=== PATIENT | male | born 1960 | race African-American/Black ===

== ENCOUNTER 2017-10-13 05:32 | Day surgery (SDC) | payer OTHER ==
[~2017-10-13] VITALS: Ht 177.8 cm; Wt 98.9 kg
--- NOTE | ~2017-10-13 | EKG ---
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 : 1960 Requested By: Nnamdi Garner Order Number: [id number] MD: Ronny Lund Measurements Intervals [place] Rate: 64 P: 66 [place]: 158 QRS: 57 QRSD: 94 T: 74 QT: 402 QTc: 415 Interpretive Statements Sinus rhythm Probable left atrial enlargement Probable left ventricular hypertrophy Compared to ECG 04/04/2016 02:04:33 T-wave abnormality no longer present Possible ischemia no longer present Electronically Signed On 10-13-2017 15:42:27 PRODUCTION CONSULTANT by Ronny Lund [email or web address] <ELECTRONICALLY SIGNED> By: Ronny Lund MD 10/13/17 [id number] Ronny Lund MD /EPI
--- NOTE | ~2017-10-13 | O ---
[facility] [place] [address] OPERATIVE REPORT Name: PEPE HARRISON Room #: [facility].#: [id number] Admission: 10/13/17 Attend Phys: Nnamdi Garner MD Discharge: 10/13/17 Date of : 64 Report #: [id number] THIS REPORT FOR: //name// CC: Nnamdi Owens MD DATE OF SERVICE: 10/13/2017 PREOPERATIVE DIAGNOSIS: Left inguinal hernia. POSTOPERATIVE DIAGNOSIS: Left direct inguinal hernia. PROCEDURE PERFORMED: Laparoscopic repair of left inguinal hernia with mesh. ANESTHESIA: General anesthesia. SURGEON: Nnamdi Garner M.D. COMPLICATIONS: None. ESTIMATED BLOOD LOSS: 5 mL. DESCRIPTION OF PROCEDURE: With the patient under general anesthesia, a Chavez catheter was placed, IV antibiotic was administered. Timeout was performed. The abdomen was prepped and draped in sterile fashion. A 0.25% Marcaine was used as a skin anesthesia adjacent to the umbilicus. Transverse incision was made adjacent to the umbilicus about 2 cm in length. The anterior rectus sheath was identified. The anterior rectus sheath was incised transversely. The muscle was spread along the length of its fiber. The posterior sheath was then identified. The space between the muscle and the posterior sheath was then dissected free. This was performed with finger dissection. An Origin balloon trocar was then placed through the space. This area was then visualized. CO2 was administered through the Origin trocar. A 5 mm trocar was placed about 2 inches below the umbilicus. Dissection was then carried out freeing the properitoneal space through the loose areolar tissue. The properitoneal space was opened up. The pubic bone was isolated. Dissection was carried over to the right side. The patient had a direct defect with some fat stuck into the wall. The inferior epigastric vessel was identified. The cord structures were identified. Lateral to this, the internal ring was found. The peritoneal reflection was identified on the cord. No evidence of indirect hernia. The peritoneum was further swept off the cord bluntly. The right side was also examined. There was no direct defect on the right side. The fat that was protruding through was brought back into the properitoneal space. This was a segment of fat that was about 3 cm in size. The fascia defect for the direct defect was then visualized. The defect was about 2.5 cm in size. A large [address] [place] [id number] OPERATIVE REPORT Name: PEPE HARRISON Room #: [facility]P [facility]#: [id number] Admission: 10/13/17 Attend Phys: Nnamdi Garner MD Discharge: 10/13/17 Date of : 64 Report #: [id number] light weight left-sided mesh was then placed. The mesh was opened up well. The mesh was then seated. The mesh was tacked laterally to the wall using SorbaFix. This was lateral to the epigastric vessel, lateral to the internal ring. This was then tacked to Hayder ligament above the pubic bone inferiorly, superomedially to the rectus muscle. Mesh was held in position well. It covered the direct defect without difficulty. CO2 was then evacuated. The patient did have some intraperitoneal air. The posterior sheath at the umbilical incision was then identified. The posterior sheath was opened. Peritoneum was opened and the air was released from the intra-abdominal cavity. The posterior sheath was closed with [id number] 0 Vicryl. Anterior rectus sheath was then closed with [id number] 0 Vicryl x 1 and then a single interrupted 0 Vicryl suture. Skin was irrigated. Skin was closed with 5-0 PDS. Steri-Strip, Band-Aids applied. The patient tolerated the procedure well and was taken to the recovery room. <ELECTRONICALLY SIGNED> By: Nnamdi Garner MD 10/16/17 [id number] [id number] Nnamdi aGrner MD /nt
[~2017-10-13 05:32] MED LIST: LISINOPRIL10 MG PO; TRICOR145 MG PO
[2017-10-13 09:23] VITALS: BP 170/94
[2017-10-13] MEDS ORDERED: HYDROCODONE-ACE15 ML PO (12:05)
[2017-10-13 12:22] VITALS: BP 170/94
== END 2017-10-13 13:28 | disposition home or self-care (01) ==
LOC: TBA 05:32 → OR 05:32
DX: K40.90 Unilateral inguinal hernia, without obstruction or gangrene, not specified as recurrent (principal); I10 Essential (primary) hypertension; E78.5 Hyperlipidemia, unspecified; Z98.890 Other specified postprocedural states; Z79.891 Long term (current) use of opiate analgesic; Z79.899 Other long term (current) drug therapy
CPT/HCPCS: 50010; 50101; 50411; 50507; 50555; 50848; 53065; 53307; 56525; 56526; 62110; 62900; 70005

== ENCOUNTER → 2021-10-26 | Outpatient (CLI) | payer OTHER ==
[~2021-10-26] MED LIST changes: +HYDROCODONE-ACE15 ML PO
== END ==
LOC: ULTRA 10:57
PROVIDERS: ATTEND Family Medicine
DX: E01.0 Iodine-deficiency related diffuse (endemic) goiter (principal); R59.0 Localized enlarged lymph nodes